=== PATIENT | female | born 1955 | race Caucasian/White ===

== ENCOUNTER 2023-08-14 13:50 | Emergency (ER) | payer BC ==
[2023-08-14] MEDS ORDERED: traMADol HCl 50 MG TAB ONE (14:37)
[2023-08-14] MEDS ORDERED: Lidocaine 1% (PF) 30 ML VIAL ONE (15:41)
[2023-08-14] MEDS ORDERED: Morphine 4 MG/ML VIAL ONE (16:02)
[2023-08-14] MEDS ORDERED: Ondansetron PF 4 MG/2 ML Vial ONE (16:02)
== END 2023-08-14 17:15 | disposition home or self-care (01) ==
LOC: NAV ERS 13:50
DX: S52.502A Unspecified fracture of the lower end of left radius, initial encounter for closed fracture (principal); I10 Essential (primary) hypertension; E78.00 Pure hypercholesterolemia, unspecified; E11.9 Type 2 diabetes mellitus without complications; Z87.891 Personal history of nicotine dependence; Z79.84 Long term (current) use of oral hypoglycemic drugs; Z79.899 Other long term (current) drug therapy; W18.30XA Fall on same level, unspecified, initial encounter
CPT/HCPCS: 25605; 96374; 96375; J2001; J2270; J2405